=== PATIENT | male | born 1935 | race Caucasian/White ===

== ENCOUNTER 2020-11-16 14:32 | Outpatient (RCR) | payer MEDICARE, OTHER, SELFPAY | END 2020-11-16 23:59 | LOC: IMMUN 14:32 | PROVIDERS: PCP Family Medicine; Visit Provider Family Medicine | DX: Z23 Encounter for immunization (principal) | CPT/HCPCS: 0011A; 0012A; 91301 ==

== ENCOUNTER → 2023-04-30 | Outpatient (CLI) | payer MEDICARE, OTHER, SELFPAY ==
[2023-04-30 13:49] VITALS: PULSE 100; PULSE 103; PULSE 106; PULSE 86; PULSE 87; PULSE 95; PULSE 97; O2SAT 86; O2SAT 88; O2SAT 90; O2SAT 91; O2SAT 92; O2SAT 95
--- NOTE | 2023-04-30 13:54 | CPS ---
Results faxed to [facility]
--- NOTE | 2023-05-01 10:08 | PCM.PSN.6M ---
PSN 6 Minute Walk Test 6 Minute Walk Test 6 Minute Walk Test: 6 Minute Walk Test PSN:6-Minute Walk Test Start: 04/30/23 13:49 Freq: Status: Active Protocol: [id number].6MINW Document 04/30/23 13:49 MICAH (Rec: 04/30/23 13:54 MICAH [id number]) 6 Minute Walk Test Date Performed 04/30/23 Time Performed 12:30 Height 5 ft 10 in Weight: 178 lb Weight in Pounds 178.[address]: Benson Toledo Assistive device used: None Pre-test Oxygen Delivery Method Room Air Pulse Ox 92 Pulse Rate (60-100) 86 Dyspnea Jn Scale (0-10) 0.5 Exertion Jn Scale (6-20) 6 1st minute Oxygen Delivery Method Room Air Pulse Ox 91 Pulse Rate (60-100) 97 2nd minute Oxygen Delivery Method Room Air Pulse Ox 86 Pulse Rate (60-100) 100 3rd minute Oxygen Flow Rate (L/min) 2 Oxygen Delivery Method Nasal Cannula Pulse Ox 92 Pulse Rate (60-100) 95 4th minute Oxygen Flow Rate (L/min) 2 Oxygen Delivery Method Nasal Cannula Pulse Ox 90 Pulse Rate (60-100) 100 5th minute Oxygen Flow Rate (L/min) 2 Oxygen Delivery Method Nasal Cannula Pulse Ox 90 Pulse Rate (60-100) 103 H 6th minute Oxygen Flow Rate (L/min) 2 Oxygen Delivery Method Nasal Cannula Pulse Ox 88 Pulse Rate (60-100) 106 H Dyspnea Jn Scale (0-10) 4 Exertion Jn Scale (6-20) 13 Post-test Oxygen Flow Rate (L/min) 2 Oxygen Delivery Method Nasal Cannula Pulse Ox 95 Pulse Rate (60-100) 87 Full Laps Walked 15 Partial Lap, Number of Tiles Walked 53 Total Distance Walked (ft) 938 04/30/23 13:54 Cardiopulmonary Services by Jina Hernandez Results faxed to [facility] Initialized on 04/30/23 13:54 - END OF NOTE Interpretation Interpretation: The patient ambulated 938 feet over the course of 6 minutes beginning on room air without assistive devices. Pretesting oxygen saturation was noted to be 92% on room air. With ambulation, the patient desaturated to 86%, requiring 2 L/min of supplemental oxygen to maintain appropriate saturations. Recommendations Recommendations: 2 L/min of supplemental oxygen should be utilized with exertion.
== END | disposition home or self-care (01) ==
LOC: PSN 12:20
PROVIDERS: PCP Family Medicine; Referring Provider Internal Medicine Critical Care Medicine; Visit Provider Internal Medicine Critical Care Medicine
DX: R06.09 Other forms of dyspnea (principal)
CPT/HCPCS: 94618

== ENCOUNTER → 2023-05-01 | Outpatient (CLI) | payer MEDICARE, OTHER, SELFPAY ==
--- NOTE | 2023-05-02 09:22 | PFT ---
INTRODUCTION: The patient is an 87-year-old male that presents for pulmonary function studies secondary to a diagnosis of dyspnea. Respiratory therapy reported good patient effort. Bronchodilators were used during testing. INTERPRETATION: Forced expiration spirometry demonstrates the presence of a severe large airways obstructive ventilatory defect. There was a significant response to aerosolized bronchodilators. Spirograms are of fair quality but do not plateau indicating slow emptying of the lungs. Body plethysmography was performed and revealed a decreased TLC to 5.14 L, 82% of predicted, indicative of a mild restrictive ventilatory impairment. Diffusing capacity by single breath CO is reduced at 63% of predicted. IMPRESSION: Partially reversible severe mixed ventilatory defect with mild reduction in diffusion capacity.
== END | disposition home or self-care (01) ==
LOC: PSN 09:49
PROVIDERS: PCP Family Medicine; Referring Provider Internal Medicine Critical Care Medicine; Visit Provider Internal Medicine Critical Care Medicine
DX: R06.09 Other forms of dyspnea (principal)
CPT/HCPCS: 94060; 94726; 94729

== ENCOUNTER 2024-10-11 03:39 | Inpatient (IN) | payer MEDICARE, SELFPAY ==
[2024-10-11] VITALS (20 sets, daily range): BP systolic 92–158; BP diastolic 55–91; PULSE 86–126; RESP 18–33; TEMP 36.5–37.8; O2SAT 87–97; BMI 28.0; BMI 26.2
--- NOTE | 2024-10-11 03:48 | EKG12_ITS ---
Test Reason : SOB Blood Pressure : */* mmHG Vent. Rate : 120 BPM Atrial Rate : 120 BPM P-R Int : 182 ms QRS Dur : 100 ms QT Int : 302 ms P-R-T Axes : 71 87 6 degrees QTcB Int : 426 ms Sinus tachycardia T wave abnormality, consider inferior ischemia Abnormal ECG Confirmed by BRADLY GORDON MD ([id number]), senior technical editor RUSTY ARAUJO ([id number]) on 10/11/2024 8:28:09 AM Referred By: TL Confirmed By: BRADLY GORDON MD
[2024-10-11 03:58] LABS: Absolute Lymphocyte Count 1.77 X10^3/uL (0.83-4.51); Basophil% 0.5 % (0-1); Eosinophil# 0.15 X10^3/uL; Eosinophils% 0.7 % (0-5); Hemoglobin 14.4 g/dL (13.0-16.5); Lymphocyte # 1.77 X10^3/ul (0.83-4.51); Mean Corp Hgb Conc 33.5 g/dL (32-36); Mean Corpuscular Hgb 30.1 pg (27.0-32.0); Mean Corpuscular Volume 89.8 fL (80-94); Mean Platelet Vol. 9.6 fl (6.2-12.0); Monocyte# 1.92 X10^3/uL; Monocyte% 8.7 % (0-10); NRBC Flagged by Analyzer 0 % (0-5); Neutrophil # 17.96 X10^3/uL (2.7-7.7); Neutrophil % 81.4 % (47-70); POSITIVE DIFFERENTIAL YES; Platelet Count 279 K/mm3 (150-450); RBC Distribution Width CV 14.1 % (11.6-14.6); RBC Distribution Width SD 45.9 fl (35.1-43.9); Red Blood Count 4.79 M/mm3 (4.6-6.2); White Blood Count 22.1 K/mm3 (4.4-11.0)
--- NOTE | 2024-10-11 03:59 | EDS_ITS ---
HPI History of Present Illness Chief Complaint: Shortness of Breath Informant: patient and EMS Narrative Narrative: Brought in by EMS worsening dyspnea this evening. Chronic cough with COPD history. He states wears oxygen when he treads. Clarification was if he walks on a treadmill. Denies chest or abdominal pain. Denies fever. Reports chills. Occasional phlegm with his cough. Denies recent travel, surgeries. No history of PE or DVT. History of coronary disease, stage III CKD hypertension hyperlipidemia. Remote tobacco. Diabetes history. Allergies to prednisone. Status post DuoNeb x 2 additional albuterol and Zofran by EMS. Patient was 74% on room air on EMS arrival he was placed on 4 L along with active breathing treatment to be given. PE Risk Factors: Negative for Cancer, OCP + Smoking + > 35, Prior DVT or PE, Recent immobilization, Recent surgery or Recent travel Prior similar symptoms: Yes [facility] Medical History Pneumonia Home Medications ?Medication ?Instructions ?Recorded ?Last Taken ?Type albuterol sulfate 90 mcg/actuation 2 puff inhalation Q4H PRN 04/10/23 Unknown History aerosol inhaler shortness of breath or wheezing amlodipine 10 mg tablet 10 mg PO DAILY 04/10/23 Unknown History aspirin 81 mg tablet,delayed 81 mg PO DAILY 04/10/23 Unknown History release clopidogrel 75 mg tablet (Plavix) 75 mg PO DAILY 04/10/23 Unknown History metformin 1,000 mg tablet 1,000 mg PO BID 04/10/23 Unknown History metoprolol succinate 100 mg 100 mg PO DAILY 04/10/23 Unknown History tablet,extended release 24 hr multivitamin,tx-minerals 1 tab PO DAILY 04/10/23 Unknown History pravastatin 80 mg tablet 80 mg PO DAILY 04/10/23 Unknown History zolpidem 5 mg tablet (Ambien) 5 mg PO QHS PRN sleep 04/10/23 Unknown History Disability Placard #1 ea 05/05/23 Unknown Rx glimepiride 1 mg tablet 1 mg PO QDAY 02/25/24 Unknown History sertraline 50 mg tablet 50 mg PO QDAY 02/25/24 Unknown History budesonide 160 mcg-glycopyr 9 2 inh inhalation BID #10.7 grams 07/06/24 Unknown Rx mcg-formot 4.8 mcg/actuation HFA inhaler (Breztri [employer]) hydrocodone-acetaminophen 5-325mg 1 tab PO DAILY PRN severe pain 10/11/24 Unknown History 5mg-325mg Allergy/AdvReac Type Severity Reaction Status Date / Time prednisone AdvReac Intermediate Other Verified 09/06/24 14:18 ramipril AdvReac Intermediate Other Verified 09/06/24 14:18 Family History Father Hypertension Brother COPD (chronic obstructive pulmonary disease) Heart disease Cancer Leukemia Mother Chronic mental illness Surgical History History of coronary artery bypass graft History of colonoscopy History of angioplasty History of appendectomy Social History Smoking Status: Former smoker Tobacco: How many years used: 50 ROS ROS ED Constitutional Constitutional ED: Reports chills; Denies fever(s) or sweats ENT ENT ED: Denies sore throat Cardiovascular Cardiovascular: Denies chest pain, leg edema, palpitations or racing heartbeat Respiratory/Chest Respiratory/Chest: Reports cough and dyspnea; Denies dyspnea on exertion Gastrointestinal Gastrointestinal: Denies abdominal pain, diarrhea, nausea or vomiting Genitourinary Genitourinary ED: Denies dysuria, hematuria or urinary frequency Musculoskeletal Musculoskeletal: Denies back pain, extremity pain or neck pain Integumentary Denies rash or wounds Neurologic Neurologic: Denies headache(s), paresthesias or weakness EXAM Physical Exam Const Vital Signs: 10/11/24 03:40 10/11/24 03:48 10/11/24 03:54 Temperature 97.7 F L Temperature Source Oral Pulse Rate 126 H Respiratory Rate 33 H Respiratory Effort Short of Breath Respiratory Depth Shallow Respiratory Pattern Tachypnea Blood Pressure 107/91 H Blood Pressure Mean 96 Pulse Ox 87 93 Oxygen Delivery Method Nasal Cannula Nasal Cannula Nasal Cannula Oxygen Flow Rate (L/min) 5 6 6 10/11/24 04:45 10/11/24 05:00 Temperature 99.1 F 99.1 F Temperature Source Oral Oral Pulse Rate 114 H 113 H Respiratory Rate 26 H 30 H Respiratory Effort Respiratory Depth Respiratory Pattern Blood Pressure 102/74 92/65 Blood Pressure Mean 83 74 Pulse Ox 95 93 Oxygen Delivery Method Nasal Cannula Nasal Cannula Oxygen Flow Rate (L/min) 6 5 Positive well nourished and well developed Constitutional Narrative: 6 L nasal cannula speaking mild short sentences, nontoxic. General Appearance ED: well developed and NAD HEENT Reports moist mucous membranes normocephalic and atraumatic Eyes General Eye ED: Yes normal appearance of both eyes Neck full ROM Chest Wall Chest: Negative for tenderness Resp normal respiratory effort Resp Narrative: No current wheezing. Diminished at bases Effort and Inspection: symmetric chest movement; Negative for respiratory distress Cardio regular rhythm and no murmurs Rate: tachycardic Peripheral Pulses: pulses 2+ throughout GI normal to inspection, nondistended, normoactive bowel sounds and non-tender Palpation: Negative for guarding or rebound tenderness present Extremity normal to inspection General Extremety ED: Negative for edema or tenderness General Extremity: Negative for edema Neuro oriented x3 and no sensory deficits noted Sensorium / Orientation: awake and alert Skin no rashes or lesions noted and no wounds MDM MDM MDM Narrative Medical decision making narrative: Interventions / MDM: Differential diagnosis: Pneumonia, history of COPD, hypoxia, CKD Diagnosis considered but do not suspect: N/A My EKG interpretation: Sinus rhythm 120, no ST or T wave changes. Imaging independently reviewed and interpreted by myself: 1 view chest x-ray: Left lower lobe infiltrate. Also read by radiology. External documents reviewed: N/A Test considered but not ordered:N/A ED course: Tachycardic on arrival patient mild short sentences. He status post aerosol treatments by EMS. Patient on 6 L nasal cannula low 90% pulse ox. Will check labs chest x-ray, nasal swabs. EKG sinus tachycardia with no acute findings. He has allergies to prednisone, note written from documentation, as elevated blood glucose. 0440: White count returned at 22,000. Did add lactic acid blood cultures. Chest x-ray on my review concerns for infiltrates left. I did discuss CODE STATUS with the patient, if his symptoms worsens he would want invasive treatment. 0455: Creatinine 1.6, GFR 43 no old for comparison. History of CKD stage III. Initial troponin negative at 13. Lactic acid 1.7. Will cover him with Rocephin and Zithromax. Glucose 254, gap normal at 8. COVID, influenza, RSV negative. 0508: I was able to evaluate records given Clinisync 1.49 noted January 23, 2024. GFR was 45. WBC with white count of 9.5 at that time also. Radiology read of x-ray left-sided airspace disease consistent with pneumonia. Will speak with hospitalist for admission. 0515: Currently weaned down to 5 L nasal cannula, no respiratory distress. Family in the room reporting he has been coughing more the last few days. Patient agrees with this. With pneumonia hypoxia needing continuous oxygen with leukocytosis. I will speak with hospitalist for admission. 0545: I spoke with hospitalist Dr. Mackey for admission to the medical floor. Re-evaluation: stable Disposition discussed with patient/family/significant other: Patient and family Case discussed with consulting clinician: Hospitalist This note was generated with [employer] dictation software. It may contain incorrect words, spelling, and punctuation that were not noted in checking the note before signing. Lab Data Attestation: I reviewed the patient's lab results. Labs: Laboratory Results - last 24 hr 10/11/24 10/11/24 03:46 04:10 WBC 22.1 H RBC 4.79 Hgb 14.4 Hct 43.0 MCV 89.8 MCH 30.1 MCHC 33.5 RDW Std Deviation 45.9 H RDW Coeff of Roger 14.1 Plt Count 279 MPV 9.6 Immature Gran % (Auto) 0.700 Neut % (Auto) 81.4 H Lymph % (Auto) 8.0 L Taney % (Auto) 8.7 Eos % (Auto) 0.7 Baso % (Auto) 0.5 Absolute Neuts (auto) 18.0 H Absolute Lymphs (auto) 1.77 Nucleated RBC % 0 Differential Comment SCANNED Diff Path Review February foll PT 13.1 INR 1.0 APTT 27.4 Sodium 138 Potassium 4.0 Chloride 109 H Carbon Dioxide 21.0 Anion Gap 8 BUN 17 Creatinine 1.61 H Estim Creat Clear Calc 36.91 Est GFR (MDRD) Af Amer 53 L Est GFR (MDRD) Non-Af 43 L BUN/Creatinine Ratio 10.6 Glucose 254 H Lactic Acid 1.7 Calcium 9.0 Total Bilirubin 1.20 H AST 17 ALT 24 Alkaline Phosphatase 90 Troponin I High Sens 13 Total Protein 7.5 Albumin 3.7 Globulin 3.8 Albumin/Globulin Ratio 1.0 Radiography Diagnostic Testing: Clinical Impression(s) from Imaging Studies Chest X-Ray 10/11/24 04:00 IMPRESSION: 1. Heterogeneous left-sided airspace disease is consistent with pneumonia. 2. COPD. Electronically Signed: Cady Phoenix MD at 5:06 EST , Discharge Plan Triage Chief Complaint: Shortness of Breath ED Provider: Harvey Toribio Dx/Rx/DC Orders Clinical Impression: Hypoxia, COPD (chronic obstructive pulmonary disease), Hyperglycemia due to diabetes mellitus, CKD (chronic kidney disease), Pneumonia Primary Care Provider: Josiah Govea
--- NOTE | 2024-10-11 04:00 | RAD_ITS ---
STUDY: X-RAY CHEST REASON FOR EXAM: Male, 88 years old patient with cough. TECHNIQUE: Single AP portable view of the chest. COMPARISON: Prior comparison studies are not available for review at this time. FINDINGS: Cardiac monitoring leads are present. The patient has had a sternotomy. The lungs are hyperexpanded. There is heterogeneous airspace consolidation and atelectasis of the left lung base. There is increased lucency within the upper lobes greater on the right that may be secondary to severe emphysema and/or right-sided bulla. There is no demonstrated pleural abnormality. Normal size heart. Normal mediastinum and fatou. Normal visualized pulmonary arteries. Normal visualized aortic arch and descending thoracic aorta. There is demineralization of the osseous structures. Normal visualized ribs, clavicles, and shoulders. There is no demonstrated abnormality of the visualized soft tissue structures of the upper abdomen. RAD/Chest 1 View (Portable) IMPRESSION: 1. Heterogeneous left-sided airspace disease is consistent with pneumonia. 2. COPD. Electronically Signed: Cady Phoenix MD at 5:06 EST ,
[2024-10-11 04:14] LABS: Prothrombin Time (Protime)PT. 13.1 SECONDS (11.7-14.9)
[2024-10-11 04:15] LABS: Partial Thromboplast Time 27.4 Seconds (24.1-36.2)
[2024-10-11 04:23] LABS: Differential Indicated SCAN CRITERIA MET
[2024-10-11 04:34] LABS: Differential Comment SCANNED
[2024-10-11 04:48] LABS: Lactic Acid 1.7 mmol/L (0.4-1.9)
[2024-10-11 04:52] LABS: AST(SGOT) 17 U/L (15-37); Alanine Aminotransfer ALT/SGPT 24 U/L (16-61); Albumin, Serum 3.7 g/dL (3.2-5.0); Alkaline Phosphatase 90 U/L (45-117); Anion Gap 8 (5-15); BUN 17 mg/dL (7-18); BUN/Creat Ratio 10.6 RATIO (10-20); Chloride 109 mmol/L (98-107); Creatinine, Serum 1.61 mg/dL (0.70-1.30); EST Glomerular Filtration Rate 43 mL/min (>60); Est Glom Filt Rate - Afr Amer 53 mL/min (>60); Estimated Creatinine Clearance 36.91 ml/min; Globulin 3.8 g/dL (2.2-4.2); Glucose 254 mg/dL (74-106); Protein, Total 7.5 g/dL (6.4-8.2); Sodium Level 138 mmol/L (136-145); Troponin-I HS (w/2H Reflex) 13 pg/mL (3.0-78.0)
[2024-10-11] MEDS: Ceftriaxone 1 GM/50 ML BAG IV (05:14)
--- NOTE | 2024-10-11 05:40 | PCM.HP.STD ---
HPI - General General Date of Admission: 10/11/24 HPI Beth CHADWICK, is a 88 M who presents to the hospital with increasing cough and shortness of breath over the last 2 to 3 days. He has a history of COPD stage III and does not normally wear oxygen unless he is on a treadmill, presented with increasing coughing per family. Currently requiring 5 L nasal cannula secondary to his hypoxia and chest x-ray demonstrates of left lower lobe pneumonia in the presence of chronic COPD. Denies any fevers or chills or chest pain and received a dose of Rocephin and azithromycin in the ER. Does not appear to be having an active COPD exacerbation. Viral panel was also negative and his renal function appears to be close to baseline, based on outpatient records his last creatinine in January was 1.45 and today is 1.61. [facility]LY [facility] Medical History Pneumonia Home Medications ?Medication ?Instructions ?Recorded ?Last Taken ?Type albuterol sulfate 90 mcg/actuation 2 puff inhalation Q4H PRN 04/10/23 Unknown History aerosol inhaler shortness of breath or wheezing amlodipine 10 mg tablet 10 mg PO DAILY 04/10/23 Unknown History aspirin 81 mg tablet,delayed 81 mg PO DAILY 04/10/23 Unknown History release clopidogrel 75 mg tablet (Plavix) 75 mg PO DAILY 04/10/23 Unknown History metformin 1,000 mg tablet 1,000 mg PO BID 04/10/23 Unknown History metoprolol succinate 100 mg 100 mg PO DAILY 04/10/23 Unknown History tablet,extended release 24 hr multivitamin,tx-minerals 1 tab PO DAILY 04/10/23 Unknown History pravastatin 80 mg tablet 80 mg PO DAILY 04/10/23 Unknown History zolpidem 5 mg tablet (Ambien) 5 mg PO QHS PRN sleep 04/10/23 Unknown History Disability Placard #1 ea 05/05/23 Unknown Rx glimepiride 1 mg tablet 1 mg PO QDAY 02/25/24 Unknown History sertraline 50 mg tablet 50 mg PO QDAY 02/25/24 Unknown History budesonide 160 mcg-glycopyr 9 2 inh inhalation BID #10.7 grams 07/06/24 Unknown Rx mcg-formot 4.8 mcg/actuation HFA inhaler (Breztri [employer]) hydrocodone-acetaminophen 5-325mg 1 tab PO DAILY PRN severe pain 10/11/24 Unknown History 5mg-325mg Allergy/AdvReac Type Severity Reaction Status Date / Time prednisone AdvReac Intermediate Other Verified 09/06/24 14:18 ramipril AdvReac Intermediate Other Verified 09/06/24 14:18 Family History Father Hypertension Brother COPD (chronic obstructive pulmonary disease) Heart disease Cancer Leukemia Mother Chronic mental illness Surgical History History of coronary artery bypass graft History of colonoscopy History of angioplasty History of appendectomy Social History Smoking Status: Former smoker Tobacco: How many years used: 50 ROS Constitutional Constitutional: Reports chills; Denies fatigue, fever(s) or malaise Eyes Eyes: Denies blurry vision ENT HEENT: Denies headache(s) or nasal discharge Cardiovascular Cardiovascular: Denies chest pain, dyspnea on exertion or syncope Respiratory/Chest Respiratory/Chest: Reports productive cough; Denies shortness of breath at rest or shortness of breath with exertion Gastrointestinal Gastrointestinal: Denies constipation, diarrhea, nausea or vomiting Genitourinary Genitourinary: Denies dysuria Neurologic Neurologic: Denies focal weakness, numbness or tremor(s) Psychiatric Psychiatric: Denies anxiety or depression Vital Signs Vital Signs Vital Signs: 10/11/24 03:40 10/11/24 03:48 10/11/24 03:54 Temperature 97.7 F L Temperature Source Oral Pulse Rate 126 H Respiratory Rate 33 H Respiratory Effort Short of Breath Respiratory Depth Shallow Respiratory Pattern Tachypnea Blood Pressure 107/91 H Blood Pressure Mean 96 Pulse Ox 87 93 Oxygen Delivery Method Nasal Cannula Nasal Cannula Nasal Cannula Oxygen Flow Rate (L/min) 5 6 6 10/11/24 04:45 10/11/24 05:00 Temperature 99.1 F 99.1 F Temperature Source Oral Oral Pulse Rate 114 H 113 H Respiratory Rate 26 H 30 H Respiratory Effort Respiratory Depth Respiratory Pattern Blood Pressure 102/74 92/65 Blood Pressure Mean 83 74 Pulse Ox 95 93 Oxygen Delivery Method Nasal Cannula Nasal Cannula Oxygen Flow Rate (L/min) 6 5 Weight Weight: 195 lb 5.273 oz Body Mass Index (BMI) 28.0 Physical Exam Narrative General: Alert, Oriented x3, Cooperative, No apparent distress HEENT: Atraumatic, PERRLA, EOMI, Normocephalic Oral: Moist Mucosa Neck: Supple, No JVD Lungs: Diminished, Normal air movement, No rhonchi, No wheeze, No rales progressive Cardiovascular: Regular rate, Regular Rhythm, Normal S1, Normal S2, No murmurs Abdomen: Soft, Non Tender, Non-Distended, No Hepato-splenomegaly Extremities: Edema, Capillary Refill Less than 3 Seconds Skin: No rashes, No breakdown Musculoskeletal: No Tenderness to Palpation of Joints or Extremities Neurological: No focal neurological deficits, Motor Exam 5/5 strength throughout, Sensory exam intact to light touch and pain Psych/Mental Status: Normal Affect, Appropriate Results Lab / Micro Data 10/11/24 03:46 10/11/24 03:46 Labs: Laboratory Results - last 24 hr 10/11/24 03:46: WBC 22.1 H, RBC 4.79, Hgb 14.4, Hct 43.0, MCV 89.8, MCH 30.1, MCHC 33.5, RDW Std Deviation 45.9 H, RDW Coeff of Roger 14.1, Plt Count 279, MPV 9.6, Immature Gran % (Auto) 0.700, Neut % (Auto) 81.4 H, Lymph % (Auto) 8.0 L, Carson % (Auto) 8.7, Eos % (Auto) 0.7, Baso % (Auto) 0.5, Absolute Neuts (auto) 18.0 H, Absolute Lymphs (auto) 1.77, Nucleated RBC % 0, Differential Comment SCANNED, Diff Path Review February, PT 13.1, INR 1.0, APTT 27.4, Sodium 138, Potassium 4.0, Chloride 109 H, Carbon Dioxide 21.0, Anion Gap 8, BUN 17, Creatinine 1.61 H, Estim Creat Clear Calc 36.91, Est GFR (MDRD) Af Amer 53 L, Est GFR (MDRD) Non-Af 43 L, BUN/Creatinine Ratio 10.6, Glucose 254 H, Calcium 9.0, Total Bilirubin 1.20 H, AST 17, ALT 24, Alkaline Phosphatase 90, Troponin I High Sens 13, Total Protein 7.5, Albumin 3.7, Globulin 3.8, Albumin/Globulin Ratio 1.0 10/11/24 04:10: Lactic Acid 1.7 Micro: Microbiology 10/11/24 03:55 Mucosa - Nasopharyngeal SARS-CoV-2, Influenza & RSV (PCR) - Final Imaging Radiology Impression Chest X-Ray 10/11/24 04:00 IMPRESSION: 1. Heterogeneous left-sided airspace disease is consistent with pneumonia. 2. COPD. Electronically Signed: Cady Phoenix MD at 5:06 EST Reading Location ID and State: [facility] / [place] , Service support , Assessment & Plan Assessment/Plan (1) Pneumonia: PLAN: Plan 1. Acute hypoxic respiratory insufficiency secondary to left-sided pneumonia ? Continue with Rocephin and azithromycin, no sepsis ? Obtain a sputum culture ? Continue with his home inhalers ? Does not appear to be having a COPD exacerbation at this time as we will hold off steroids 2. Essential HTN/HLD/CAD ? Continue with his home aspirin and Plavix ? Continue with his home blood pressure medications ? Will monitor and make adjustments as necessary 3. DM2 with CKD 3 ? Sign scale insulin ? Accu-Cheks ACHS ? Will hold home oral medications ? Will monitor make adjustments as necessary 4. Anxiety/depression ? Stable ? Continue with Zoloft DVT: Heparin 75 minutes was spent on direct patient care, including documentation as well as chart review and collaboration with colleagues Charges/Coding Visit Charges Inpatient E&M: 03356 Init Hosp L3
[2024-10-11] MEDS: Azithromycin 500 MG in 0.9% Normal Saline (250mL Bag) 250 ML 250 MG IV (05:51)
[2024-10-11 05:55] LABS: Reflex Troponin-HS? (from REC) Y
[2024-10-11 06:19] LABS: Troponin-I HS 25 pg/mL (3.0-78.0)
[2024-10-11] MEDS: Insulin Lispro 100 UNIT/ML INSULN.PEN SC ×4 (07:25→22:08)
[2024-10-11] MEDS: Heparin Injection (Vial) 5,000 UNIT/ML VIAL 5000 UNIT SC ×3 (07:25→22:10)
[2024-10-11 07:46] LABS: Bedside Glucose 178 mg/dL (74-106)
[2024-10-11] MEDS: Metoprolol(XL)Succ 25 MG Tablet PO (10:11)
[2024-10-11] MEDS: Aspirin E.C. 81 MG Tablet PO (10:11)
[2024-10-11] MEDS: Clopidogrel Bisulfate 75 MG Tablet PO (10:11)
[2024-10-11] MEDS: Sertraline 50 MG Tablet PO (10:12)
--- NOTE | 2024-10-11 11:30 | CASEMGMT ---
RN CM Face to Face with patient for initial transition planning/care coordination assessment. RN CM introduced self and role at [facility]. Patient lying in bed, alert and oriented, family at bedside. Patient willing to participate in assessment and is able to answer all questions appropriately. Care providers, pharmacy, and demographics verified. Strata: 1 PCP: Jeferson Specialists: Carol Cartagena, geek squad agent; Cardiosharon Montes Preferred Pharmacy: [facility] Insurance: [facility] Prescription Benefit yes Living Will/HPOA: yes daughter Keyonna Mccain LNOK: daughter, son Living Arrangements: Patient lives alone in a mobile home with 3 steps and railing to enter the home. Patient states he is independent at home. Transportation: self, family DME/HHC: Patient states he has cane, nebulizer, pulse ox, [facility] No previous HHC or SNF Patient wishes to discharge home, denies need for home health at this time. Patient states he has no further needs or concerns at this time. CM to follow for discharge planning needs that may arise. Disposition Plan: Patient to discharge home with family support and follow-up plans in place. Will monitor for increase in home oxygen. Leia MARTINEZ, RN, CM
[2024-10-11 12:05] LABS: Bedside Glucose 163 mg/dL (74-106)
[2024-10-11] MEDS: Albuterol 2.5 MG/3 ML VIAL.NEB. INHALATION (13:35)
--- NOTE | 2024-10-11 15:06 | PCM.HOSP.N ---
Hospitalist Note Admitted with shortness of breath and cough for 1 week but got worse in the last 3 to 4 days.History of COPD only needs oxygen when on treadmill but has not used in last couple months but not at rest. Currently on high flow oxygen. Blood pressure systolic in 100s. Chest x-ray initially reviewed and shows left-sided pneumonia with atelectasis. Emphysematous lungs with bullae. On IV ceftriaxone and azithromycin. Amlodipine discontinued. Metoprolol succinate dose decreased to 25 mg daily. Seen and examined General: Alert, Oriented x3, Cooperative HEENT: Atraumatic, PERRLA, EOMI, Normocephalic Oral: No Gingival or Mucosal Lesions/ Ulcerations Neck: Supple, No JVD, Negative Carotid Bruits Chest wall/Lungs: Air entry diminished in bilateral lung bases. Mild bilateral coarse crepitations. Shallow breathing Cardiovascular: Regular rate, Regular Rhythm, Normal S1, Normal S2, No M/G/R Abdomen: Bowel Sounds Present, Soft, Non Tender, Non-Distended : No dysuria. No renal angle tenderness. No suprapubic tenderness. Extremities: Left leg slightly swollen more than right lower. Capillary Refill Less than 3 Seconds Skin: No rashes, No breakdown Musculoskeletal: History of vein harvest meant for CABG in the left leg. No tenderness but mild soreness in lower legs. ROM restricted Neurological: Cranial nerves II-XII grossly intact, DTR 2+/4. No acute focal neurological deficit. Psych/Mental Status: Normal Affect, Appropriate.
[2024-10-11 17:02] LABS: Bedside Glucose 196 mg/dL (74-106)
[2024-10-11] MEDS: Pravastatin 80 MG Tablet PO (22:10)
[2024-10-11] MEDS: 0.9% Saline Lock 10 ML Syringe IV (22:10)
[2024-10-11 23:38] LABS: Bedside Glucose 165 mg/dL (74-106)
[2024-10-12] VITALS (13 sets, daily range): BP systolic 136–158; BP diastolic 65–78; PULSE 72–95; RESP 16–20; TEMP 36.6–37.3; O2SAT 90–96
[2024-10-12 06:37] LABS: Absolute Lymphocyte Count 0.86 X10^3/uL (0.83-4.51); Absolute Neutrophil Count 12.7 X10^3/uL (2.0-7.7); Basophil# 0.05 X10^3/uL; Basophil% 0.3 % (0-1); Eosinophil# 0.04 X10^3/uL; Eosinophils% 0.3 % (0-5); Hematocrit 36.7 % (40-54); Hemoglobin 12.2 g/dL (13.0-16.5); Lymphocyte # 0.86 X10^3/ul (0.83-4.51); Lymphocyte % 5.5 % (19-41); Mean Corp Hgb Conc 33.2 g/dL (32-36); Mean Corpuscular Hgb 30.4 pg (27.0-32.0); Mean Corpuscular Volume 91.5 fL (80-94); Mean Platelet Vol. 10.2 fl (6.2-12.0); Monocyte# 1.75 X10^3/uL; Monocyte% 11.3 % (0-10); NRBC Flagged by Analyzer 0 % (0-5); Neutrophil # 12.66 X10^3/uL (2.7-7.7); Neutrophil % 81.6 % (47-70); POSITIVE DIFFERENTIAL YES; Platelet Count 192 K/mm3 (150-450); RBC Distribution Width CV 14.1 % (11.6-14.6); RBC Distribution Width SD 47.7 fl (35.1-43.9); Red Blood Count 4.01 M/mm3 (4.6-6.2); White Blood Count 15.5 K/mm3 (4.4-11.0)
[2024-10-12 06:42] LABS: Differential Indicated SCAN CRITERIA MET
[2024-10-12] MEDS: Heparin Injection (Vial) 5,000 UNIT/ML VIAL 5000 UNIT SC ×3 (06:45→21:25)
[2024-10-12 07:07] LABS: Bedside Glucose 145 mg/dL (74-106)
[2024-10-12 07:15] LABS: Anion Gap 6 (5-15); BUN 24 mg/dL (7-18); BUN/Creat Ratio 13.5 RATIO (10-20); Calcium,Total 8.6 mg/dL (8.5-10.1); Chloride 111 mmol/L (98-107); Creatinine, Serum 1.78 mg/dL (0.70-1.30); EST Glomerular Filtration Rate 39 mL/min (>60); Est Glom Filt Rate - Afr Amer 47 mL/min (>60); Estimated Creatinine Clearance 30.76 ml/min; Glucose 148 mg/dL (74-106); Sodium Level 138 mmol/L (136-145)
[2024-10-12] MEDS: 0.9% Saline Lock 10 ML Syringe IV ×2 (08:26→12:03)
[2024-10-12] MEDS: Metoprolol(XL)Succ 25 MG Tablet PO (08:26)
[2024-10-12] MEDS: Clopidogrel Bisulfate 75 MG Tablet PO (08:26)
[2024-10-12] MEDS: Aspirin E.C. 81 MG Tablet PO (08:26)
[2024-10-12] MEDS: Sertraline 50 MG Tablet PO (08:27)
[2024-10-12] MEDS: Ceftriaxone 1 GM/50 ML BAG IV (08:27)
[2024-10-12] MEDS: Albuterol 2.5 MG/3 ML VIAL.NEB. INHALATION ×2 (09:05→17:19)
[2024-10-12] MEDS: Azithromycin 500 MG in 0.9% Normal Saline (250mL Bag) 250 ML 250 MG IV (09:24)
[2024-10-12 10:32] LABS: Pathologist Review Reviewed
--- NOTE | 2024-10-12 10:47 | PN.HOSP_ITS ---
Reason for Visit Reason for Visit: Diagnoses Pneumonia, unspecified organism (10/11/24) Objective Data Objective Data Vital Signs: Vital Signs Temp Pulse Resp BP Pulse Ox O2 Del Method O2 Flow Rate 99.2 F H 95 18 146/67 H 94 Nasal Cannula 4 10/12/24 06:00 10/12/24 09:05 10/12/24 09:05 10/12/24 06:00 10/12/24 09:05 10/12/24 09:05 10/12/24 09:05 Oxygen Flow Rate (L/min) 4 Oxygen Delivery Method Nasal Cannula Weight: 182 lb 8.684 oz Body Mass Index (BMI) 26.2 Intake & Output: Intake and Output for Last 24 Hours 10/10/24 10/11/24 10/12/24 23:59 23:59 23:59 Intake Total 725 / 845 240 / 240 Output Total 200 / 201 Balance 525 / 644 239 / 239 Lab / Micro Data 10/12/24 06:07 10/12/24 06:07 Labs: Laboratory Results - last 24 hr 10/11/24 11:11: POC Glucose 163 H 10/11/24 16:39: POC Glucose 196 H 10/11/24 22:07: POC Glucose 165 H 10/12/24 06:07: WBC 15.5 H, RBC 4.01 L, Hgb 12.2 L, Hct 36.7 L, MCV 91.5, MCH 30.4, MCHC 33.2, RDW Std Deviation 47.7 H, RDW Coeff of Roger 14.1, Plt Count 192, MPV 10.2, Immature Gran % (Auto) 1.000 H, Neut % (Auto) 81.6 H, Lymph % (Auto) 5.5 L, [place] % (Auto) 11.3 H, Eos % (Auto) 0.3, Baso % (Auto) 0.3, Absolute Neuts (auto) 12.7 H, Absolute Lymphs (auto) 0.86, Nucleated RBC % 0, Differential Comment COMMENT, Diff Path Review Reviewed, Sodium 138, Potassium 4.0, Chloride 111 H, Carbon Dioxide 22.0, Anion Gap 6, BUN 24 H, Creatinine 1.78 H, Estim Creat Clear Calc 30.76, Est GFR (MDRD) Af Amer 47 L, Est GFR (MDRD) Non-Af 39 L, BUN/Creatinine Ratio 13.5, Glucose 148 H, Calcium 8.6 10/12/24 06:46: POC Glucose 145 H Micro: Microbiology 10/11/24 11:15 Sputum, Expectorated/Coughed Gram Stain - Final 10/11/24 11:15 Sputum, Expectorated/Coughed Respiratory Culture - Preliminary Appears to be normal respiratory areli. Further studies to follow. 10/11/24 03:55 Mucosa - Nasopharyngeal SARS-CoV-2, Influenza & RSV (PCR) - Final Physical Exam Narrative Patient quit smoking about 20 years ago. History of COPD. Mild dyspnea at rest. Seen and examined General: Alert, Oriented x3, Cooperative HEENT: Atraumatic, PERRLA, EOMI, Normocephalic Oral: No Gingival or Mucosal Lesions/ Ulcerations Neck: Supple, No JVD, Negative Carotid Bruits Chest wall/Lungs: Air entry diminished in bilateral lung bases. Still on 4 L of oxygen Cardiovascular: Regular rate, Regular Rhythm, Normal S1, Normal S2, No M/G/R Abdomen: Bowel Sounds Present, Soft, Non Tender, Non-Distended : No dysuria. No renal angle tenderness. No suprapubic tenderness. Extremities: Left leg slightly swollen more than right lower. 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 No tenderness but mild soreness in lower legs. ROM restricted Neurological: Cranial nerves II-XII grossly intact, DTR 2+/4. No acute focal neurological deficit. Psych/Mental Status: Normal Affect, Appropriate. Assessment & Plan Assessment/Plan (1) Pneumonia: PLAN: Plan 1. Acute hypoxic respiratory insufficiency secondary to left-sided pneumonia ? Continue with Rocephin and azithromycin, no sepsis ? Obtain a sputum culture ? Continue with his home inhalers ? Does not appear to be having a COPD exacerbation at this time as we will hold off steroids 10/12: Leukocytosis is getting better. Immature granulocytes 1%. Mainly neutrophilia. 2. Essential HTN/HLD/CAD ? Continue with his home aspirin and Plavix ? Continue with his home blood pressure medications ? Will monitor and make adjustments as necessary 3. DM2 with CKD 3b ? Accu-Chek before meals and at bedtime with Humalog sliding scale coverage and hypoglycemia protocol. ? Accu-Cheks ACHS Admitting BUNs/creatinine 17.61. ? Continue hold home oral medications 10/12: BUNs/creatinine 08/11.78 worse than yesterday. 500 mL normal saline bolus over 2 hours. Monitor kidney function 4. Anxiety/depression ? Stable ? Continue with Zoloft DVT: Heparin 75 minutes was spent on direct patient care, including documentation as well as chart review and collaboration with colleagues Charges/Coding Visit Charges Inpatient E&M: 91346 Subs Hosp L2
[2024-10-12 11:05] LABS: Pathologist Review Reviewed
[2024-10-12] MEDS: Insulin Lispro 100 UNIT/ML INSULN.PEN SC ×2 (11:24→21:25)
--- NOTE | 2024-10-12 11:43 | NURSING ---
patient complaining of nausea and overall not feeling the greatest when eating. Patient family requesting something for nausea. MD notified and will place order.
[2024-10-12 11:56] LABS: Bedside Glucose 179 mg/dL (74-106)
[2024-10-12] MEDS: proCHLORPERazine 10 MG/2 ML Vial 5 MG IV (12:03)
[2024-10-12 17:17] LABS: Bedside Glucose 154 mg/dL (74-106)
[2024-10-12] MEDS: [UNRECOGNIZED DRUG - OTHER] 250 ML IV (17:47)
[2024-10-12] MEDS: Pravastatin 80 MG Tablet PO (21:25)
[2024-10-12 22:18] LABS: Bedside Glucose 188 mg/dL (74-106)
[2024-10-13] VITALS (7 sets, daily range): BP systolic 146–168; BP diastolic 67–75; PULSE 88–96; RESP 18–20; TEMP 36.2–36.7; O2SAT 80–96
[2024-10-13] MEDS: Heparin Injection (Vial) 5,000 UNIT/ML VIAL 5000 UNIT SC (06:35)
[2024-10-13 06:39] LABS: Absolute Lymphocyte Count 1.28 X10^3/uL (0.83-4.51); Absolute Neutrophil Count 10.9 X10^3/uL (2.0-7.7); Basophil# 0.06 X10^3/uL; Basophil% 0.4 % (0-1); Eosinophil# 0.17 X10^3/uL; Eosinophils% 1.2 % (0-5); Hematocrit 37.4 % (40-54); Hemoglobin 11.9 g/dL (13.0-16.5); Lymphocyte # 1.28 X10^3/ul (0.83-4.51); Mean Corp Hgb Conc 31.8 g/dL (32-36); Mean Corpuscular Hgb 29.3 pg (27.0-32.0); Mean Corpuscular Volume 92.1 fL (80-94); Mean Platelet Vol. 10.4 fl (6.2-12.0); Monocyte# 1.64 X10^3/uL; Monocyte% 11.6 % (0-10); NRBC Flagged by Analyzer 0 % (0-5); Neutrophil % 77.1 % (47-70); POSITIVE DIFFERENTIAL YES; Platelet Count 199 K/mm3 (150-450); RBC Distribution Width CV 13.8 % (11.6-14.6); RBC Distribution Width SD 46.9 fl (35.1-43.9); Red Blood Count 4.06 M/mm3 (4.6-6.2); White Blood Count 14.2 K/mm3 (4.4-11.0)
[2024-10-13 06:54] LABS: Bedside Glucose 140 mg/dL (74-106)
[2024-10-13 07:00] LABS: Differential Indicated SCAN CRITERIA MET
[2024-10-13 07:11] LABS: Differential Comment SCANNED
[2024-10-13 07:20] LABS: Anion Gap 5 (5-15); BUN 25 mg/dL (7-18); BUN/Creat Ratio 14.2 RATIO (10-20); Calcium,Total 8.8 mg/dL (8.5-10.1); Chloride 108 mmol/L (98-107); Creatinine, Serum 1.76 mg/dL (0.70-1.30); EST Glomerular Filtration Rate 39 mL/min (>60); Est Glom Filt Rate - Afr Amer 47 mL/min (>60); Estimated Creatinine Clearance 31.11 ml/min; Glucose 150 mg/dL (74-106); Potassium 3.9 mmol/L (3.5-5.1); Sodium Level 138 mmol/L (136-145)
--- NOTE | 2024-10-13 09:13 | RAD_ITS ---
INDICATION: pneumonia, sob, hypoxia EXAMINATION/TECHNIQUE: X-RAY - XR Chest 2 Views COMPARISON: October 11, 2024 FINDINGS: LINES/DEVICES: None. LUNGS: The lungs are hyperinflated. There are grossly stable ill-defined opacities within the lower lungs, more pronounced on the left. No pneumothorax. MEDIASTINUM AND CARDIOVASCULAR STRUCTURES: There are sternotomy wires in place. Cardiac silhouette not enlarged. Central airways and mediastinal contour are unremarkable. BONES AND SOFT TISSUES: Unremarkable. RAD/Chest PA and Lateral IMPRESSION: Bibasilar ill-defined opacities, may reflect atelectasis and/or pneumonia. Electronically Signed: Mary Ye MD at 12:15 EST ,
[2024-10-13] MEDS: Metoprolol(XL)Succ 25 MG Tablet PO (09:22)
[2024-10-13] MEDS: Sertraline 50 MG Tablet PO (09:22)
[2024-10-13] MEDS: Clopidogrel Bisulfate 75 MG Tablet PO (09:22)
[2024-10-13] MEDS: Aspirin E.C. 81 MG Tablet PO (09:22)
[2024-10-13] MEDS: 0.9% Saline Lock 10 ML Syringe IV (10:12)
[2024-10-13] MEDS: Ceftriaxone 1 GM/50 ML BAG IV (10:13)
--- NOTE | 2024-10-13 10:49 | DCINST_ITS ---
Discharge Instructions DC O2, CPAP, BIPAP needs Home O2 Discharge instructions: Yes Type of respiratory needs?: Oxygen Oxygen frequency: Continuous Continuous oxygen liters per minute: 3 L/m Follow Up Care Test Results: Test results from this visit will be discussed in further detail at your follow- up appointment, if applicable. Discharge Plan Admission Admit Date/Time: 10/11/24 05:50 Attending Provider: Murali Matias Primary Care Provider: Josiah Govea Consulting Providers: Mike Mackey Discharge Orders/Prescriptions Prescriptions: New cefdinir 300 mg capsule 300 mg PO BID 5 Days Qty: 10 0RF doxycycline monohydrate 100 mg tablet 100 mg PO BID 5 Days Qty: 10 0RF Continued albuterol sulfate 90 mcg/actuation HFA aerosol inhaler 2 puff inhalation Q4H PRN (Reason: shortness of breath or wheezing) amlodipine 10 mg tablet 10 mg PO DAILY aspirin 81 mg tablet,delayed release (DR/EC) 81 mg PO DAILY clopidogrel [Plavix] 75 mg tablet 75 mg PO DAILY metoprolol succinate 100 mg tablet extended release 24 hr 100 mg PO DAILY pravastatin 80 mg tablet 80 mg PO DAILY multivitamin,tx-minerals Tablet 1 tab PO DAILY zolpidem [Ambien] 5 mg tablet 5 mg PO QHS PRN (Reason: sleep) (DME) Disability Placard See Rx Instructions .Route .MEDSUPPLY Qty: 1 0RF Rx Instructions: expires 05/05/2028 glimepiride 1 mg tablet 1 mg PO QDAY sertraline 50 mg tablet 50 mg PO QDAY hydrocodone-acetaminophen 5-325 mg tablet 1 tab PO DAILY PRN (Reason: severe pain) Breztri Aerosphere 160-9-4.8 mcg/actuation HFA aerosol inhaler 2 inh inhalation BID Qty: 10.7 11RF Changed metformin 1,000 mg tablet 500 mg PO BID 30 Days Qty: 0 0RF Rx Instructions: Hold if creatinine clearance drops less than 30 mL/min Referrals / Follow Up: Josiah Govea DO [Primary Care Provider] - Jorge Monk PA [Non-Staff] - Disposition Disposition (needs filled in before D/C Order can be placed): Home, Self Care
--- NOTE | 2024-10-13 11:33 | DS.PCM_ITS ---
Providers Date of Admission: 10/11/24 Date of Discharge: 10/13/24 Primary Care Physician: Dr. Josiah Govea, DO Reason For Visit: PNEUMONIA,HYPOXIA Diagnosis Discharge Diagnosis (1) Pneumonia: Status: Acute Code(s): J18.9 - Pneumonia, unspecified organism Plan Shortness of breath/dyspnea on the evening of admission. He has home oxygen but he uses very irregularly only when he walks or treadmill but he has not been doing for last couple months. History of his smoking more than 35 years, quit 20 years ago 88-year-old gentleman was admitted with 1. Acute hypoxic respiratory insufficiency secondary to left-sided pneumonia ? Continue with Rocephin and azithromycin, no sepsis ? Obtain a sputum culture ? Continue with his home inhalers ? Does not appear to be having a COPD exacerbation at this time as we will hold off steroids 10/12: Leukocytosis is getting better. Immature granulocytes 1%. Mainly neutrophilia. 10/13: Mild leukocytosis. Patient did not have fever or chills. Blood pressure in 140s to 150s. Chest x-ray initially reviewed and shows chronic COPD changes with scarring and volume loss and left lung base infiltrate. 2. Essential HTN/HLD/CAD ? Continue with his home aspirin and Plavix ? Continue with his home blood pressure medications ? Will monitor and make adjustments as necessary 10/13: Patient on metoprolol succinate. Advised follow-up PCP. 3. DM2 with CKD 3b ? Accu-Chek before meals and at bedtime with Humalog sliding scale coverage and hypoglycemia protocol. ? Accu-Cheks ACHS Admitting BUNs/creatinine 17/1.61. ? Continue hold home oral medications 10/12: BUNs/creatinine 20/1.78 worse than yesterday. 500 mL normal saline bolus over 2 hours. Monitor kidney function 10/13 BUN/creatinine is in baseline. Metformin dose decreased to 500 mg twice daily with instruction to hold if creatinine clearance less than 30 and pulmonary. On glimepiride 1 mg daily 4. Anxiety/depression ? Stable ? Continue with Zoloft DVT: Heparin Discharge medication reconciliation done. Discharge follow-up instructions completed. Discharge process discussed with the patient and all questions were answered to patient's satisfaction. Follow with PCP in 1 to 2 weeks Total time spent, exact 35 minutes on discharge meds reconciliation, examination, coordination of care with nurses and ancillary staff, review of imaging and blood test and discussion with the patient on follow-up instructions. Patient is discharged on cefdinir and doxycycline Medications at Discharge Home Medications albuterol sulfate 90 mcg/actuation aerosol inhaler 2 puff inhalation Q4H PRN shortness of breath or wheezing 04/10/23 amlodipine 10 mg tablet 10 mg PO DAILY 04/10/23 aspirin 81 mg tablet,delayed release 81 mg PO DAILY 04/10/23 clopidogrel 75 mg tablet (Plavix) 75 mg PO DAILY 04/10/23 metoprolol succinate 100 mg tablet,extended release 24 hr 100 mg PO DAILY 04/10/23 multivitamin,tx-minerals 1 tab PO DAILY 04/10/23 pravastatin 80 mg tablet 80 mg PO DAILY 04/10/23 zolpidem 5 mg tablet (Ambien) 5 mg PO QHS PRN sleep 04/10/23 Disability Placard #1 ea 05/05/23 glimepiride 1 mg tablet 1 mg PO QDAY 02/25/24 sertraline 50 mg tablet 50 mg PO QDAY 02/25/24 budesonide 160 mcg-glycopyr 9 mcg-formot 4.8 mcg/actuation HFA inhaler (Breztri Aerosphere) 2 inh inhalation BID #10.7 grams 07/06/24 hydrocodone-acetaminophen 5-325mg 5mg-325mg 1 tab PO DAILY PRN severe pain 10/11/24 cefdinir 300 mg capsule 300 mg PO BID 5 days #10 caps 10/13/24 doxycycline monohydrate 100 mg tablet 100 mg PO BID 5 days #10 tabs 10/13/24 metformin 1,000 mg tablet 500 mg (1/2 x 1,000 mg) PO BID 30 days #0 tabs 10/13/24 Physical Exam Narrative Patient quit smoking about 20 years ago. History of COPD. shortness of breath is resolved. Repeat chest x-ray was done Seen and examined General: Alert, Oriented x3, Cooperative HEENT: Atraumatic, PERRLA, EOMI, Normocephalic Oral: No Gingival or Mucosal Lesions/ Ulcerations Neck: Supple, No JVD, Negative Carotid Bruits Chest wall/Lungs: Air entry diminished in bilateral lung bases. Still on 4 L of oxygen Cardiovascular: Regular rate, Regular Rhythm, Normal S1, Normal S2, No M/G/R Abdomen: Bowel Sounds Present, Soft, Non Tender, Non-Distended : No dysuria. No renal angle tenderness. No suprapubic tenderness. Extremities: Left leg slightly swollen more than right lower. 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 No tenderness but mild soreness in lower legs. ROM restricted Neurological: Cranial nerves II-XII grossly intact, DTR 2+/4. No acute focal neurological deficit. Psych/Mental Status: Normal Affect, Appropriate. Weight / BMI Weight Weight: 182 lb 8.684 oz Body Mass Index (BMI) 26.2 ABG / Lab / Microbiology Data 10/13/24 05:51 10/13/24 05:51 Laboratory: Laboratory Results - last 24 hr 10/12/24 11:19: POC Glucose 179 H 10/12/24 16:55: POC Glucose 154 H 10/12/24 21:23: POC Glucose 188 H 10/13/24 05:51: WBC 14.2 H, RBC 4.06 L, Hgb 11.9 L, Hct 37.4 L, MCV 92.1, MCH 29.3, MCHC 31.8 L, RDW Std Deviation 46.9 H, RDW Coeff of Roger 13.8, Plt Count 199, MPV 10.4, Immature Gran % (Auto) 0.700, Neut % (Auto) 77.1 H, Lymph % (Auto) 9.0 L, [place] % (Auto) 11.6 H, Eos % (Auto) 1.2, Baso % (Auto) 0.4, A bsolute Neuts (auto) 10.9 H, Absolute Lymphs (auto) 1.28, Nucleated RBC % 0, Differential Comment SCANNED, Diff Path Review February foll, Sodium 138, Potassium 3.9, Chloride 108 H, Carbon Dioxide 25.0, Anion Gap 5, BUN 25 H, Creatinine 1.76 H, Estim Creat Clear Calc 31.11, Est GFR (MDRD) Af Amer 47 L, Est GFR (MDRD) Non-Af 39 L, BUN/Creatinine Ratio 14.2, Glucose 150 H, Calcium 8.8 10/13/24 06:35: POC Glucose 140 H Microbiology: Microbiology 10/11/24 04:15 Blood Culture (Wb) - Left Wrist Blood Culture - Preliminary No growth in 48 hours. 10/11/24 04:10 Blood Culture (Wb) - Anticubital Right Blood Culture - Preliminary No growth in 48 hours. 10/11/24 11:15 Sputum, Expectorated/Coughed Gram Stain - Final 10/11/24 11:15 Sputum, Expectorated/Coughed Respiratory Culture - Preliminary Appears to be normal respiratory areli. Further studies to follow. 10/11/24 03:55 Mucosa - Nasopharyngeal SARS-CoV-2, Influenza & RSV (PCR) - Final D/C Instructions DC O2, CPAP, BIPAP Needs Home O2 Discharge instructions: Yes Type of respiratory needs?: Oxygen Oxygen frequency: Continuous Continuous oxygen liters per minute: 3 L/m DC home with Oxygen: Yes Home O2 MD Review: I have reviewed the oxygen testing, and the patient qualifies for home oxygen equipment and portability. The patient is mobile in the home and the community. Meaningful Use Info Meaningful Use Meaningful Use Diagnoses (Choose all that apply): None applicable Ischemic Stroke Statin Dosing Therapy Reference: STATIN DOSE THERAPY REFERENCE: * Patients > 75 years receive moderate or high dose statin therapy. * Patients 75 years or YOUNGER should receive HIGH intensity statin dose unless contraindicated. You will be required to document reason for non-treatment if statin daily dose does not meet guidelines. HIGH DOSE STATIN THERAPY DAILY Atorvastatin > than or = to 40 mg Rosuvastatin > than or = to 20 mg Amlodipine + Atorvastatin > than or = to 2.5/40 mg Ezetimibe + Simvastatin 10/80 mg Simvastatin 80mg Discharge Plan Admission Admit Date/Time: 10/11/24 05:50 Attending Provider: Murali Matias Primary Care Provider: Josiah Govea Consulting Providers: Mike Mackey Discharge Orders/Prescriptions Prescriptions: New cefdinir 300 mg capsule 300 mg PO BID 5 Days Qty: 10 0RF doxycycline monohydrate 100 mg tablet 100 mg PO BID 5 Days Qty: 10 0RF Continued albuterol sulfate 90 mcg/actuation HFA aerosol inhaler 2 puff inhalation Q4H PRN (Reason: shortness of breath or wheezing) amlodipine 10 mg tablet 10 mg PO DAILY aspirin 81 mg tablet,delayed release (DR/EC) 81 mg PO DAILY clopidogrel [Plavix] 75 mg tablet 75 mg PO DAILY metoprolol succinate 100 mg tablet extended release 24 hr 100 mg PO DAILY pravastatin 80 mg tablet 80 mg PO DAILY multivitamin,tx-minerals Tablet 1 tab PO DAILY zolpidem [Ambien] 5 mg tablet 5 mg PO QHS PRN (Reason: sleep) (DME) Disability Placard See Rx Instructions .Route .MEDSUPPLY Qty: 1 0RF Rx Instructions: expires 05/05/2028 glimepiride 1 mg tablet 1 mg PO QDAY sertraline 50 mg tablet 50 mg PO QDAY hydrocodone-acetaminophen 5-325 mg tablet 1 tab PO DAILY PRN (Reason: severe pain) Breztri Aerosphere 160-9-4.8 mcg/actuation HFA aerosol inhaler 2 inh inhalation BID Qty: 10.7 11RF Changed metformin 1,000 mg tablet 500 mg PO BID 30 Days Qty: 0 0RF Rx Instructions: Hold if creatinine clearance drops less than 30 mL/min Referrals / Follow Up: Josiah Govea DO [Primary Care Provider] - Jorge Monk PA [Non-Staff] - Disposition Disposition (needs filled in before D/C Order can be placed): Home, Self Care Charges/Coding Visit Charges Inpatient E&M: 83704 Disch Hosp >30min
[2024-10-13] MEDS: Insulin Lispro 100 UNIT/ML INSULN.PEN SC (11:49)
--- NOTE | 2024-10-13 13:24 | NURSING ---
pt up to br from chair by window and on 2.5l dropped to 80% by time back to chair with mod dyspnea obs and unable to complete whole sentence d/t. o2 turned back up to 4l. will allow to catch breath then recheck pt to amb again
[2024-10-13 16:37] LABS: Bedside Glucose 152 mg/dL (74-106)
[2024-10-15 08:35] LABS: Pathologist Review Reviewed
== END 2024-10-13 16:38 | disposition home or self-care (01) | DRG 194 ==
LOC: ED 05:16 → PCU 07:26
PROVIDERS: Admitting Provider Family Medicine; Emergency Provider Emergency Medicine; PCP Family Medicine; Visit Provider Internal Medicine
DX: J18.9 Pneumonia, unspecified organism (principal); J96.11 Chronic respiratory failure with hypoxia; J44.0 Chronic obstructive pulmonary disease with (acute) lower respiratory infection; E11.22 Type 2 diabetes mellitus with diabetic chronic kidney disease; N18.32 Chronic kidney disease, stage 3b; F32.A Depression, unspecified; I12.9 Hypertensive chronic kidney disease with stage 1 through stage 4 chronic kidney disease, or unspecified chronic kidney disease; E11.65 Type 2 diabetes mellitus with hyperglycemia; J43.9 Emphysema, unspecified; I25.10 Atherosclerotic heart disease of native coronary artery without angina pectoris; E78.5 Hyperlipidemia, unspecified; F41.9 Anxiety disorder, unspecified; Z11.52 Encounter for screening for COVID-19; Z79.82 Long term (current) use of aspirin; Z79.02 Long term (current) use of antithrombotics/antiplatelets; Z79.84 Long term (current) use of oral hypoglycemic drugs; Z79.899 Other long term (current) drug therapy; Z87.891 Personal history of nicotine dependence
CPT/HCPCS: 36415; 71045; 71046; 80048; 80053; 82962; 83605; 84484; 85025; 85610; 85730; 87040; 87070; 87205; 87631; 93005; 94640; 94668; 97162; 97166; 99285; A4216